=== PATIENT | female | born 2000 ===

== ENCOUNTER 2023-03-18 14:41 | Outpatient (REF) | payer OTHER, SELFPAY ==
[2023-03-19 12:44] LABS: Influenza A PCR NEGATIVE (Negative); Influenza B PCR NEGATIVE (Negative); Resp Syncy Virus RNA Qual PCR NEGATIVE (Negative); SARS COV2 PCR INHOUSE NEGATIVE (Negative)
== END 2023-03-18 14:42 | disposition home or self-care (01) ==
LOC: HO.HMGCLNP 14:41
PROVIDERS: Visit Provider Nurse Practitioner Family
DX: Z11.52 Encounter for screening for COVID-19 (principal); Z20.822 Contact with and (suspected) exposure to COVID-19; J02.8 Acute pharyngitis due to other specified organisms
CPT/HCPCS: 0241U

== ENCOUNTER 2023-03-18 14:41 | Outpatient (AMB) | payer OTHER, SELFPAY ==
--- NOTE | 2023-03-18 15:09 | MHC.OFFWIV ---
Intake Vital Signs 03/18/23 15:20 Height 5 ft 4 in Weight 204 lb BMI 35.0 BP 120/76 Blood Pressure Location Rt brachial Position Sitting Pulse 64 Pulse Source Pulse Oximeter Temp 98.2 F Temp Source Oral Pulse Oximetry (%) 99 Oxygen Delivery Method Room Air Intake Visit Reasons: [employer]/sore throat([phone]) Patient Tobacco Use Status: Never used Tobacco Allergies No Known Allergies Allergy (Verified 03/18/23 15:09) Medication List - Last Reconciled 03/18/23 by Eli Yoo NP No Known Home Meds Do you need a note to return to daycare/school/sports/work: Yes HPI HPI Comments History of Present Illness Details 23 y/o female presents to walk in clinic with c/[place]. Reports that symptoms started last night. She has recent contact with sick family members at home. Denies fevers, chills, nausea or vomiting. Denies SOB or CP. PFSH Social History Patient Tobacco Use Status: Never used Tobacco Review of Systems Const All systems reviewed & are unremarkable except as noted in HPI and below Physical Exam Vital Signs: Last Vital Signs Temp 98.2 F 03/18/23 15:20 Pulse 64 03/18/23 15:20 BP 120/76 03/18/23 15:20 Pulse Ox 99 03/18/23 15:20 Oxygen Delivery Method Room Air 03/18/23 15:20 BMI result Body Mass Index 35.0 Const General: comfortable and no acute distress HEENT Head: Yes normocephalic Ears: external ears normal and TM's normal bilaterally General nose exam: Normal external nose present, Abnormal mucous membranes and turbinates present boggy and erythematous and Nasal discharge present Face and sinus: Yes sinuses nontender Mouth: oropharynx normal Throat: Yes posterior oropharynx normal Resp Effort & Inspection: normal respiratory effort Auscultation: clear to auscultation bilaterally Cardio Palpation: normal PMI Rate: regular rate Rhythm: regular rhythm Assessment & Plan Assessment & Plan (1) Acute pharyngitis: Code(s): J02.9 - Acute pharyngitis, unspecified Qualifiers: Pharyngitis/tonsillitis etiology: other specified organisms Qualified Code(s): J02.8 - Acute pharyngitis due to other specified organisms Plan: - Rest and hydrate with warm fluids. - SARs Orders: Orders SARS-CoV2/FLU/RSV Today J02.8 - Acute pharyngitis due to other specified organisms Coding Level of Care Code Est Pt Level 3 (29682) Diagnoses Acute pharyngitis due to other specified organisms J02.8 Pharyngitis/tonsillitis etiology: other specified organisms Time Spent (min) 15
[2023-03-18 15:20] VITALS: BP 120/76; PULSE 64; TEMP 36.8; O2SAT 99; BMI 35.0
== END 2023-03-18 16:17 | disposition home or self-care (01) ==
PROVIDERS: Visit Provider Nurse Practitioner Family
DX: J02.9 Acute pharyngitis, unspecified (principal)
CPT/HCPCS: 99213